=== PATIENT | male | born 1995 | race Caucasian/White ===

== ENCOUNTER 2017-01-10 00:38 | Emergency (ER) | payer MEDICARE ==
[2017-01-10 01:34] LABS: BASO % 0.2 % (0.2-1.2); EOS % 0.1 % (0.8-7.0); GRAN # 14.3 10_X3_uL (1.8-5.4); GRAN % 86.2 % (34.0-67.9); LYMPH # 1.3 10_X3_uL (1.3-3.6); LYMPH % 7.6 % (21.8-53.1); MEAN CORPUSCULAR HEMOGLOBIN 29.7 pg (27.0-33.0); MEAN CORPUSCULAR HGB CONC 34.8 g/dL (32.0-36.0); MEAN CORPUSCULAR VOLUME 85.5 fL (79-92); MEAN PLATELET VOLUME 9.6 fl (7.5-11.5); MONO % 5.9 % (5.3-12.2); PLATELET COUNT 213 x10_3/uL (163-337); RED BLOOD COUNT 5.38 x10_6/uL (4.6-6.1); RED CELL DISTRIBUTION WIDTH 12.4 % (11.6-14.4); WHITE BLOOD COUNT 16.6 x10_3/uL (4.2-9.1)
[2017-01-10 01:51] LABS: ALBUMIN 4.7 gm/dL (3.4-5.0); ALKALINE PHOSPHATASE 59 U/L (50-136); ALT/SGPT 13 U/L (7.53-40.17); AST/SGOT 23 U/L (6.66-35.34); BILIRUBIN,TOTAL 0.75 mg/dL (0.0-1.0); BLOOD UREA NITROGEN 13 mg/dL (7-18); CALCIUM 9.7 mg/dL (8.7-10.7); CARBON DIOXIDE 26 mmol/L (21-32); CREATININE 1.2 mg/dL (0.6-1.3); GLUCOSE,RANDOM 111 mg/dL (70-99); POTASSIUM 3.5 mmol/L (3.5-5.1); SODIUM 142 mmol/L (136-145); TOTAL PROTEIN 7.1 gm/dL (6.4-8.2)
[2017-01-10 01:52] LABS: ETHYL ALCOHOL < 10 mg/dl
[2017-01-10 02:30] LABS: URINE BILIRUBIN NEGATIVE (NEGATIVE); URINE BLOOD NEGATIVE (NEGATIVE); URINE GLUCOSE (UA) NORMAL (NORMAL); URINE KETONE NEGATIVE (NEGATIVE); URINE LEUKOCYTE ESTERASE NEGATIVE (NEGATIVE); URINE NITRATE NEGATIVE (NEGATIVE); URINE PROTEIN NEGATIVE (NEGATIVE)
== END 2017-01-10 03:30 | disposition home or self-care (01) ==
LOC: ER 00:38
PROVIDERS: Emergency Medicine
DX: F84.5 Asperger's syndrome (principal); B27.90 Infectious mononucleosis, unspecified without complication; R45.1 Restlessness and agitation; Z79.899 Other long term (current) drug therapy
CPT/HCPCS: 36415; 71010; 80053; 80307; 81003; 85025; 86308; 87070; 87400; 87880; 96372; 99070; 99283; 99284-25; G0480